=== PATIENT | female | born 1945 | race Caucasian/White ===

== ENCOUNTER → 2020-05-29 | Outpatient (CLI) | payer MEDICARE, OTHER ==
[~2020-05-29] VITALS: Ht 160 cm; Wt 65.0 kg
[~2020-05-29] MED LIST: CATHETER FLUSH 10 ML SYR IV PRN; REGADENOSON 0.4 MG/5 ML SYR (LEXISCAN) IV ONE
[2020-05-29 09:14] VITALS: BP 159/105
--- NOTE | 2020-05-29 16:00 | Cardiology Stress Test Report ---
Stress Test Report Date of Procedure/Referring: Date of Procedure: May 29, 2020 PCP Kina Avelar MD Admitting Physician Jordan Wasserman MD Indications: Hypertension Baseline Heart Rate: 92 Baseline Blood Pressure: Blood Pressure Systolic: 159 Blood Pressure Diastolic: 105 Baseline Vitals Vital Signs Date Time Temp Pulse Resp B/P (MAP) Pulse Ox O2 Delivery O2 Flow Rate FiO2 05/29/20 09:14 80 18 159/105 (123) 97 Room Air Baseline EKG: Baseline EKG: atrial fibrillation Summary After explaining the procedure to the patient, she signed a consent and then brought to the stress nuclear laboratory. Patient received 0.4 mg Lexiscan for stress test, ECG, heart rate and blood pressure were monitored continuously. Resting and stress dose of radio tracer were injected, imaging was acquired and reviewed in short axis, horizontal long axis and vertical long axis views. TID: 1.11 SSS: 6 SDS: 5 EF: 54 1. Patient tolerated Lexiscan well 2. No significant ischemia was noted on SPECT images, stress score is mildly elevated due to extracardiac attenuation and mild decrease uptake at the basal to mid anterior septum 3. Normal left ventricular size, EF 54 percent, gated images unreliable due to underlying atrial fibrillation 4. Baseline atrial fibrillation persisted during test KINA AVELAR MD May 29, 2020 16:00
== END ==
LOC: CARD 08:00
PROVIDERS: ATTEND Internal Medicine Cardiovascular Disease
DX: I10 Essential (primary) hypertension (principal); I48.91 Unspecified atrial fibrillation; E03.9 Hypothyroidism, unspecified
CPT/HCPCS: 78452; 93017; A9502

== ENCOUNTER → 2020-06-03 | Outpatient (CLI) | payer MEDICARE, OTHER ==
[~2020-06-03] MED LIST changes: +ASPI-1238 PO; -CATHETER FLUSH 10 ML SYR IV PRN; +CRAN400C PO; +L.AC1CAP6 PO; +LEVO88TA54 PO; +LOSA25TA41 PO; +METO-333 PO; +MULT-1029 PO; +OMEP20TA33 PO; -REGADENOSON 0.4 MG/5 ML SYR (LEXISCAN) IV ONE; +RIVA20TA PO
== END ==
LOC: LABNPT 05:50
PROVIDERS: ATTEND Internal Medicine Cardiovascular Disease
DX: Z01.812 Encounter for preprocedural laboratory examination (principal); Z53.9 Procedure and treatment not carried out, unspecified reason

== ENCOUNTER → 2020-06-05 | Day surgery (SDC) | payer MEDICARE, OTHER ==
[2020-06-05] VITALS (9 sets, daily range): BP systolic 105–137; BP diastolic 61–87
[~2020-06-05] VITALS: Ht 160 cm; Wt 65.0 kg
[~2020-06-05] MED LIST changes: +LIDOCAINE 2% VISCOUS 15 ML UDC ONE; +NS IV 1000 ML 1,000 ML IV SCH; +NS IV 1000 ML 1,000 ML ONE; +proPOfol 200 MG/20 ML (DIPRIVAN) VIAL IV ONE
[2020-06-05 10:50] LABS: HEMOGLOBIN 12.1 g/dL (11.5-16.0); MEAN PLATELET VOLUME 11.8 fL (9.0-12.2); WHITE BLOOD COUNT 4.4 10^3/uL (4.3-11.0)
[2020-06-05 11:10] LABS: ALBUMIN 4.1 GM/DL (3.2-4.5); BILIRUBIN,TOTAL 0.5 MG/DL (0.1-1.0); CALCIUM 8.9 MG/DL (8.5-10.1); CREATININE SERUM 0.94 MG/DL (0.60-1.30); POTASSIUM 4.2 MMOL/L (3.6-5.0)
[2020-06-05 11:13] LABS: INR 1.8 (0.8-1.4)
--- NOTE | 2020-06-05 11:26 | NUR ---
I SPOKE WITH THE PATIENT, WENT THROUGH THE MED BOTTLES BROUGHT FROM HOME, CALLED [facility] AND [facility] TO COMPLETE THIS MED REC. 11/27/2019 LEVOTHYROXINE 88MCG #90/90DS -PT IS WAITING ON A REFILL FROM [facility] 04/15/2020 LOSARTAN 100MG #90/90DS 04/30/2020 XARELTO 20MG #90/90DS 05/16/2020 METOPROLOL TART 25MG #180 OTC: ASPIRIN PROBIOTIC CRANBERRY PRILOSEC CENTR
--- NOTE | 2020-06-05 12:02 | Cardiac Procedure Note-CS/ASA ---
Pre-Procedure Note Pre-Op Procedure Note H&P Reviewed The H&P was reviewed, patient examined and no changes noted. Date H&P Reviewed: Jun 05, 2020 Time H&P Reviewed: 12:01 Conscious Sedation Pre-Proced Time 12:01 ASA Score 3 For ASA 3 and 4: Consider anesthesia and medical clearance. Also, for patients with a history of failed moderate sedation consider anesthesia. Airway Lungs Heart ASA score ASA 1: a normal healthy patient ASA 2: a patient with a mild systemic disease (mid diabetes, controlled hypertension, obesity x ASA 3: a patient with a severe systemic disease that limits activity (angina, COPD, prior Myocardial infarction) ASA 4: a patient with an incapacitating disease that is a constant threat to life (CHF, renal failure) ASA 5: a moribund patient not expected to survive 24 hrs. (ruptured aneurysm) ASA 6: a declared brain- patient whose organs are being harvested. For emergent operations, add the letter E after the classification Mallampati Classification Grade 3 Sedation Plan Analgesia, Amnesia, Plan communicated to team members, Discussed options with patient/fam, Discussed risks with patient/fam The patient is an appropriate candidate to undergo the planned procedure, sedation, and anesthesia. The patient immediately re-assessed prior to indication. KINA VELARDE MD Jun 05, 2020 12:02
--- NOTE | 2020-06-05 12:04 | Discharge Inst-Post CATH ---
Discharge Inst-CATH/EP Problems Reviewed?: Yes Post Cardiac Cath/EP D/C Inst Follow Up/Plan Appointment with Dr. Avelar's office in 2 weeks <b>CARDIAC CATH/EP PROCEDURE DISCHARGE INSTRUCTIONS</b> ACTIVITY * Go Home directly and rest. * Limit activity of the leg (or wrist if it was used) for 7 days including aerobics, swimming, jogging, bicycling, etc. * Restrict stair-climbing for 7 days if possible, if not, climb up with your non-cath leg, then bring together on the same step. * Avoid lifting, pushing, pulling or excessive movement of the affected extremity for 7 days. * Customary sexual activity may be resumed after 2 days-use caution not to use a position that strains or causes pain to the affected extremity. * No driving for 24 hours. * NO SMOKING. * Avoid straining for bowel movements for 7 days. * Gentle walking on level ground is allowed. * Returning to work will depend on the type of procedure and the results. Your doctor will discuss this with you. CALL YOUR DOCTOR FOR ANY OF THE FOLLOWING: *If bleeding from the puncture site occurs- Apply gentle pressure to site with clean cloth and call your doctor or EMS. * If a knot or lump forms under the skin, increases in size, or causes pain. * If bruising appears to be worsening or moving further down your leg instead of disappearing. * Temperature above 101 F. CARE OF YOUR GROIN INCISION; * Bruising or purple discoloration of the skin near the puncture site is common. * You may shower only, no bathtub bathing for 5 days. Be careful to avoid slipping as your leg may feel stiff. * If a closure device was used on your femoral artery, please see the attached guide regarding care of the device and your leg. * Leave dressing on FOR 24 hours. CARE OF YOUR WRIST INCISION; * Bruising or purple discoloration of the skin near the puncture site is common. * You may shower. * DO NOT submerge wrist. * Leave dressing on FOR 24 hours. KINA AVELAR MD Jun 05, 2020 12:04
--- NOTE | 2020-06-05 12:05 | Cardioversion ---
Cardioversion PROCEDURE PHYSICIAN: Kina Avelar DATE OF PROCEDURE: 06/05/20 DIRECT EXTERNAL ELECTRICAL CARDIOVERSION: Indications: Atrial Fibrillation with rapid ventricular rate Preoperative diagnoses: Atrial Fibrillation with rapid ventricular rate Postoperative diagnosis: Sinus rhythm, Successful Electrical Cardioversion Anesthesia: By Anesthesia services Complications: None Specimen: None Contrast: 0 Flouroscopy: none Procedure Details: The patient was brought the cardiac cath lab technologist after informed consent was taken, all the risks and complications were explained including the risk of stroke. Electrical cardioversion was carried out with anesthesia support with propofol. 120 joules of synchronized shock was delivered through external patches which promptly restored sinus rhythm. The patient tolerated the procedure well. Conclusions: 1. Successful electrical cardioversion without complication Final Diagnosis: Paroxysmal atrial fibrillation Palpitation Hypertension Hyperlipidemia KINA AVELAR MD Jun 05, 2020 12:05
--- NOTE | 2020-06-05 12:12 | Diagnostic Imaging Report ---
CHEST 1 VIEW, AP/PA ONLY Indication: Atrial fibrillation Comparison: None available. Findings: No focal airspace disease in the visualized lungs. Please note that the posterior lower lobes are poorly evaluated by portable radiography. No pleural effusion or pneumothorax. Normal cardiomediastinal silhouette. Impression: 1. No acute cardiopulmonary process by portable radiography. Dictated by: Dictated on workstation # [id number]
--- NOTE | 2020-06-05 12:36 | Diagnostic Imaging Report ---
INDICATION: Transesophageal echocardiogram. EXAMINATION: AP view of chest is obtained with comparison made to study of 06/05/2020. FINDINGS: Heart size and pulmonary vascularity are within normal limits. There is deformity of the lateral left ribs which may be due to old trauma. No pneumothorax is identified. There is no significant pleural fluid. There is no evidence of pneumopericardium or pneumomediastinum. IMPRESSION: No acute abnormality is detected. Dictated by: Dictated on workstation # [id number]
--- NOTE | 2020-06-05 12:54 | Anesthesia-General Post-Op ---
MAC Patient Condition Mental Status/LOC: Same as Preop Cardiovascular: Satisfactory Nausea/Vomiting: Absent Respiratory: Satisfactory Pain: Controlled Complications: Absent Post Op Complications Complications None Follow Up Care/Instructions Patient Instructions None needed. Anesthesiology Discharge Order Discharge Order Patient is doing well, no complaints, stable vital signs, no apparent adverse anesthesia problems. No complications reported per nursing. MAGDALENO MARTINEZ CRNA Jun 05, 2020 12:54
--- NOTE | 2020-06-05 13:22 | NUR ---
gag reflex intact. pt tolerating ice water and crackers.
--- NOTE | 2020-06-05 14:00 | NUR ---
dc'iv, cath intact, drsg applied. pt discharged per wheelchair to vehicle accompanied by her .
== END ==
LOC: SDC 08:21
PROVIDERS: ATTEND Internal Medicine Cardiovascular Disease
DX: I48.0 Paroxysmal atrial fibrillation (principal); I10 Essential (primary) hypertension; E78.5 Hyperlipidemia, unspecified; E03.9 Hypothyroidism, unspecified; G62.9 Polyneuropathy, unspecified; Z79.899 Other long term (current) drug therapy; Z79.82 Long term (current) use of aspirin; Z88.0 Allergy status to penicillin; Z88.2 Allergy status to sulfonamides; Z90.710 Acquired absence of both cervix and uterus; Z83.3 Family history of diabetes mellitus
CPT/HCPCS: 36415; 71045; 80053; 80061; 85027; 85610; 85730; 87081; 92960; 93005; 93312

== ENCOUNTER 2021-01-08 10:56 | Emergency (ER) | payer MEDICARE, OTHER ==
[~2021-01-08] VITALS: Ht 162.6 cm; Wt 63.5 kg
[~2021-01-08 10:56] MED LIST changes: -LIDOCAINE 2% VISCOUS 15 ML UDC ONE; -NS IV 1000 ML 1,000 ML IV SCH; -NS IV 1000 ML 1,000 ML ONE; -proPOfol 200 MG/20 ML (DIPRIVAN) VIAL IV ONE
--- NOTE | 2021-01-08 11:26 | ED Cardiac General ---
History of Present Illness General Stated Complaint: CHEST PAIN History of Present Illness Date Seen by Provider: Jan 08, 2021 Time Seen by Provider: 11:15 Initial Comments 75-year-old female with past medical history significant for atrial fibrillation. She was cardioverted several months ago by her marketing program manager in [place]. Since then she has been doing well, her last few days she has noticed an occasional irregular beat and today she was feeling it again with some pressure in her lower chest without radiation or associated nausea or diaphoresis. On arrival to the ER she is feeling better. Denies any recent illness, cough, fever or chills. Allergies and Home Medications Allergies Coded Allergies: Penicillins (Unverified Allergy, Unknown, 05/29/20) Sulfa (Sulfonamide Antibiotics) (Unverified Allergy, Unknown, 05/29/20) Home Medications Aspirin 81 Mg Tablet.dr, 81 MG PO HS, (Reported) Cranberry 400 Mg Capsule, 400 MG PO DAILY, (Reported) L.acidoph & Paracasei,B.lactis 1 Each Capsule, 1 EACH PO DAILY, (Reported) Levothyroxine Sodium 88 Mcg Tablet, 88 MCG PO HS, (Reported) LAST FILLED 11/27/2019 #90 Losartan Potassium 25 Mg Tablet, 25 MG PO DAILY, (Reported) Metoprolol Tartrate 25 Mg Tablet, 50 MG PO BID, (Reported) TAKES 2 (25MG) TABLETS Multivit-Min/FA/Lycopene/Lut 1 Each Tablet, 1 EACH PO DAILY, (Reported) Omeprazole Magnesium 20 Mg Tablet.dr, 20 MG PO DAILY PRN for HEARTBURN, (Reported) Rivaroxaban 20 Mg Tablet, 20 MG PO HS, (Reported) Patient Home Medication List Home Medication List Reviewed: Yes Review of Systems Review of Systems Constitutional: No dizziness, No fever, No malaise, No weakness EENTM: No Symptoms Reported Respiratory: Denies Cough, Denies Shortness of Air Cardiovascular: See HPI; Denies Chest Pain, Denies Edema; Irregular Heart Rate, Lightheadedness, Palpitations; Denies Syncope Gastrointestinal: Denies Abdominal Pain, Denies Diarrhea, Denies Nausea, Denies Poor Appetite, Denies Vomiting Musculoskeletal: No back pain, No joint pain Past Sfrhyxf-Gpwjkb-Oofdcq Hx Past Med/Social Hx: Reviewed Nursing Past Med/Soc Hx Patient Social History Alcohol Beverage of Choice: Wine Immunizations Up To Date Tetanus Booster (TDap): Less than 5yrs Date of Pneumonia Vaccine: Mar 27, 2015 Past Medical History Thyroidectomy Respiratory: No Cardiac: Yes Hypertension Neurological: No Genitourinary: No Gastrointestinal: Yes Diverticulosis Cancer: Yes Skin Physical Exam Vital Signs Vital Signs - First Documented 01/08/21 11:00 Temp 36.1 Pulse 94 Resp 14 B/P (MAP) 123/79 (94) Pulse Ox 97 O2 Delivery Room Air Capillary Refill : Height, Weight, BMI Height: '" Weight: lbs. oz. kg; 25.39 BMI Method: General Appearance: No Apparent Distress, WD/WN HEENT: PERRL/EOMI, Normal ENT Inspection Neck: Full Range of Motion, Non Tender, Supple Respiratory: Chest Non Tender, Lungs Clear, Normal Breath Sounds, No Accessory Muscle Use, No Respiratory Distress Cardiovascular: No Edema, No JVD, Normal Peripheral Pulses, Irregularly Irregular Gastrointestinal: Normal Bowel Sounds, Non Tender, Soft Extremity: Normal Capillary Refill, Normal Inspection, Non Tender Neurologic/Psychiatric: Alert, Oriented x3 Skin: Normal Color, Warm/Dry Progress/Results/Core Measures Results/Orders Lab Results Laboratory Tests Test 01/08/21 11:10 Range/Units White Blood Count 3.7 L 4.3-11.0 10^3/uL Red Blood Count 4.18 L 4.35-5.85 10^6/uL Hemoglobin 12.4 11.5-16.0 G/DL Hematocrit 39 35-52 % Mean Corpuscular Volume 93 80-99 FL Mean Corpuscular Hemoglobin 30 25-34 PG Mean Corpuscular Hemoglobin Concent 32 32-36 G/DL Red Cell Distribution Width 12.8 10.0-14.5 % Platelet Count 162 130-400 10^3/uL Mean Platelet Volume 11.6 H 7.4-10.4 FL Immature Granulocyte % (Auto) 1 % Neutrophils (%) (Auto) 57 42-75 % Lymphocytes (%) (Auto) 31 12-44 % Monocytes (%) (Auto) 10 0-12 % Eosinophils (%) (Auto) 1 0-10 % Basophils (%) (Auto) 0 0-10 % Neutrophils # (Auto) 2.1 1.8-7.8 X 10^3 Lymphocytes # (Auto) 1.1 1.0-4.0 X 10^3 Monocytes # (Auto) 0.4 0.0-1.0 X 10^3 Eosinophils # (Auto) 0.1 0.0-0.3 10^3/uL Basophils # (Auto) 0.0 0.0-0.1 10^3/uL Immature Granulocyte # (Auto) 0.0 0.0-0.1 10^3/uL Sodium Level 140 135-145 MMOL/L Potassium Level 4.2 3.6-5.0 MMOL/L Chloride Level 106 98-107 MMOL/L Carbon Dioxide Level 26 21-32 MMOL/L Anion Gap 8 5-14 MMOL/L Blood Urea Nitrogen 17 7-18 MG/DL Creatinine 1.00 0.60-1.30 MG/DL Estimat Glomerular Filtration Rate 54 BUN/Creatinine Ratio 17 Glucose Level 79 70-105 MG/DL Calcium Level 9.1 8.5-10.1 MG/DL Corrected Calcium 8.9 8.5-10.1 MG/DL Magnesium Level 1.9 1.6-2.4 MG/DL Total Bilirubin 0.7 0.1-1.0 MG/DL Aspartate Amino Transf (AST/SGOT) 20 5-34 U/L Alanine Aminotransferase (ALT/SGPT) 12 0-55 U/L Alkaline Phosphatase 93 40-136 U/L Troponin I < 0.30 <0.30 NG/ML Total Protein 7.4 6.4-8.2 GM/DL Albumin 4.2 3.2-4.5 GM/DL My Orders Orders - ROVENSTINEKINJAL L DO Ed Iv/Invasive Line Start (01/08/21 11:21) Cbc With Automated Diff (01/08/21 11:21) Comprehensive Metabolic Panel (01/08/21 11:21) Magnesium (01/08/21 11:21) Troponin I Fs (01/08/21 11:21) Ekg Tracing (01/08/21 11:21) Chest 1 View Ap/Pa Only (01/08/21 11:21) Ns Iv 1000 Ml (Sodium Chloride 0.9%) (01/08/21 11:30) Metoprolol Succinate (Xl) Tab (Toprol Xl (01/08/21 11:30) Medications Given in ED Current Medications Medications Dose Ordered Sig/Princess Route Start Time Stop Time Status Last Admin Dose Admin Metoprolol Succinate 25 mg ONCE ONCE PO 01/08/21 11:30 01/08/21 11:31 DC 01/08/21 11:28 25 MG Vital Signs/I&O 01/08/21 11:00 Temp 36.1 Pulse 94 Resp 14 B/P (MAP) 123/79 (94) Pulse Ox 97 O2 Delivery Room Air Progress Progress Note : Progress Note Patient asymptomatic for ER visit with no rapid heart rate. Reviewed normal labs and EKG showing A. fib. Call Dr. Avelar her marketing program manager, who agrees with increasing her metoprolol to 50 mg twice daily from 25. He will see her in the office next week. She is currently anticoagulated on Xarelto. This information was conveyed to patient and her . They agree with treatment and plan and have no further questions. Initial ECG Impression Date: Jan 08, 2021 Initial ECG Rhythm: A Fib/Flutter Initial ECG Impression: Atrial Fibrillation Departure Impression Primary Impression: Atrial fib/flutter, transient Disposition: 01 HOME, SELF-CARE Condition: Improved Departure-Patient Inst. Decision time for Depature: 11:54 Referrals: MINA LIM MD (PCP/Family) Primary Care Physician Patient Instructions: Atrial Fibrillation (DC) Add. Discharge Instructions: Increase your Metoprolol to 50mg twice daily and keep your appointment to see Dr Avelar next week. Go to the nearest ER for issues with a rapid heart rate that doesn't slow down in a few minutes. KINJAL ANGEL DO Jan 08, 2021 11:25
[2021-01-08] MEDS ORDERED: NS IV 1000 ML 1,000 ML IV SCH (11:30)
[2021-01-08 11:35] LABS: BASOPHILS % (AUTO) 0 % (0-10); EOSINOPHILS % (AUTO) 1 % (0-10); HEMATOCRIT 39 % (35-52); HEMOGLOBIN 12.4 G/DL (11.5-16.0); LYMPHOCYTES % (AUTO) 31 % (12-44); MEAN CORPUSCULAR HEMOGLOBIN 30 PG (25-34); MEAN CORPUSCULAR HGB CONC 32 G/DL (32-36); MEAN CORPUSCULAR VOLUME 93 FL (80-99); MEAN PLATELET VOLUME 11.6 FL (7.4-10.4); MONOCYTES % (AUTO) 10 % (0-12); NEUTROPHILS % (AUTO) 57 % (42-75); PLATELET COUNT 162 10^3/uL (130-400); WHITE BLOOD COUNT 3.7 10^3/uL (4.3-11.0)
[2021-01-08 11:36] LABS: EOSINOPHILS # (AUTO) 0.1 10^3/uL (0.0-0.3); LYMPHOCYTES # (AUTO) 1.1 X 10^3 (1.0-4.0); MONOCYTES # (AUTO) 0.4 X 10^3 (0.0-1.0); NEUTROPHILS # (AUTO) 2.1 X 10^3 (1.8-7.8)
[2021-01-08 11:46] LABS: ALANINE AMINOTRANSFERASE 12 U/L (0-55); ALKALINE PHOSPHATASE 93 U/L (40-136); BILIRUBIN,TOTAL 0.7 MG/DL (0.1-1.0); BUN/CREATININE RATIO 17; CALCIUM 9.1 MG/DL (8.5-10.1); CARBON DIOXIDE 26 MMOL/L (21-32); CHLORIDE 106 MMOL/L (98-107); GFR ESTIMATED 54; GLUCOSE 79 MG/DL (70-105); MAGNESIUM 1.9 MG/DL (1.6-2.4); POTASSIUM 4.2 MMOL/L (3.6-5.0); SODIUM 140 MMOL/L (135-145)
[2021-01-08 11:47] LABS: ALBUMIN 4.2 GM/DL (3.2-4.5); TOTAL PROTEIN 7.4 GM/DL (6.4-8.2)
[2021-01-08 12:28] VITALS: BP 126/57
--- NOTE | 2021-01-08 12:42 | Diagnostic Imaging Report ---
HISTORY: Chest pain COMPARISON: 06/05/2020 TECHNIQUE: Frontal view of the chest FINDINGS: Lung volumes are mildly large. No focal consolidation is seen. There is no pleural effusion or pneumothorax. The cardiac silhouette is normal in size. There is chronic appearing deformity of the left chest wall. There appears to be a fracture of the lateral left 4th rib which appears chronic. IMPRESSION: 1. No acute pulmonary abnormality is seen. 2. Chronic appearing deformity of the left chest wall. Fracture of the left 4th rib appears chronic. Dictated by: Dictated on workstation # [id number]
== END 2021-01-08 12:13 | disposition home or self-care (01) ==
LOC: EDUNIT# 10:56 → ER FS 10:59
DX: I48.91 Unspecified atrial fibrillation (principal); I10 Essential (primary) hypertension; Z79.01 Long term (current) use of anticoagulants; Z79.82 Long term (current) use of aspirin
CPT/HCPCS: 36415; 71045; 80053; 83735; 84484; 85025; 93005

== ENCOUNTER 2021-01-17 07:39 | Day surgery (SDC) | payer MEDICARE, OTHER ==
[~2021-01-17] VITALS: Ht 162.6 cm; Wt 64.2 kg
[2021-01-17] VITALS (11 sets, daily range): BP systolic 108–169; BP diastolic 67–81
[2021-01-17] MEDS ORDERED: NS IV 1000 ML 1,000 ML IV SCH (08:00)
[2021-01-17 08:14] LABS: HEMATOCRIT 40 % (35-52); HEMOGLOBIN 12.6 g/dL (11.5-16.0); MEAN CORPUSCULAR HEMOGLOBIN 30 pg (25-34); MEAN CORPUSCULAR HGB CONC 31 g/dL (32-36); MEAN CORPUSCULAR VOLUME 95 fL (80-99); MEAN PLATELET VOLUME 11.2 fL (9.0-12.2); PLATELET COUNT 156 10^3/uL (130-400); WHITE BLOOD COUNT 4.1 10^3/uL (4.3-11.0)
[2021-01-17 08:25] LABS: INR 1.9 (0.8-1.4)
[2021-01-17 08:34] LABS: ALBUMIN 4.1 GM/DL (3.2-4.5); BILIRUBIN,TOTAL 0.5 MG/DL (0.1-1.0); CALCIUM 9.2 MG/DL (8.5-10.1); CREATININE SERUM 1.02 MG/DL (0.60-1.30); POTASSIUM 4.1 MMOL/L (3.6-5.0); TOTAL PROTEIN 7.2 GM/DL (6.4-8.2)
[2021-01-17] MEDS ORDERED: METO50TA15 PO (08:52)
[2021-01-17] MEDS ORDERED: IRBE300T17 PO (08:52)
[2021-01-17] MEDS ORDERED: ACET-2267 PO (08:54)
[2021-01-17] MEDS ORDERED: HEParin 1000 UNIT/ML (10ML VIAL) FOR BOLUS ONE (09:40)
--- NOTE | 2021-01-17 10:10 | Cardiac Cath Report ---
Cardiac Cath Report Physician (s)/Fell Cutter (s) Physician KINA VELARDE MD Pre-Procedure Diagnosis Pre-Procedure Diagnosis: Coronary artery disease Post-Procedure Note Procedure Start Date: Jan 17, 2021 Name of Procedure: Left heart catheterization Stent to the LAD Findings/Procedure Note PROCEDURE NOTE: 75-year-old lady with a history of hypertension, paroxysmal atrial fibrillation, chest pain, had an abnormal stress test, scheduled for cardiac catheterization possible PTCA. After explaining the procedure to the patient, all pros and cons were explained, all questions were answered. The patient signed the consent and then she was placed on the cardiac catheterization laboratory. Groin was prepped SL fashion local anesthesia was used. Sheath placed in the right radial artery, [place] catheter was advanced to the left ventricular cavity, pressure was measured, pullback LV to aorta was done, intubated the right and left coronary system and angiogram was done. Patient was noted to have severe mid LAD stenosis, given additional 3000 units of heparin, I attempted with a EBU guide to access the left coronary system without success, exchanged it and use FL 3.5, BMW wire was advanced through the LAD that has severe mid stenosis, primary stenting using 2.25 x 23 mm Indu stent expanded to 2.45 mm with excellent results At the end of the procedure the sheath was removed. Vascular band deployed FINDINGS: Hemodynamics LV 104/9, end-diastolic pressure of 9 Aorta 118/57 mean of 17 ANATOMY: Left Main is free of obstructive disease Left Anterior Descending is small to moderate in size with severe mid LAD stenosis, successful primary stenting using Indu 2.25 x 23 mm expanded to 2.45 mm with excellent results Left Circumflex has mild disease nonobstructive disease Right Coronary Artery has mild to moderate disease in the midportion nonobstructive disease LV Gram was not done, pressure was measured CONCLUSION: 1. Severe mid LAD stenosis with successful primary stenting using Indu 2.25 x 23 mm expanded to 2.45 mm with excellent results 2. Otherwise mild coronary artery disease nonobstructive disease 3. Normal left ventricular end-diastolic pressure DISCUSSION AND RECOMMENDATION: Patient was started on aspirin, Plavix in addition to the Xarelto. We will continue maximizing medical therapy Anesthesia Type: Conscious Sedation Estimated blood loss (mL): 15 ml Contrast Amount: 100 ml Total Radiation Dose: 332 mGy Post-Procedure Diagnosis Post-operative diagnosis: Chest pain Coronary artery disease Paroxysmal atrial fibrillation Hypertension KINA VELARDE MD Jan 17, 2021 10:10 am
--- NOTE | 2021-01-17 10:10 | Conscious Sedation/ASA ---
Conscious Sedation Pre-Proced Time 10:10 ASA Score 3 For ASA 3 and 4: Consider anesthesia and medical clearance. Also, for patients with a history of failed moderate sedation consider anesthesia. Airway Lungs Heart ASA score ASA 1: a normal healthy patient ASA 2: a patient with a mild systemic disease (mid diabetes, controlled hypertension, obesity x ASA 3: a patient with a severe systemic disease that limits activity (angina, COPD, prior Myocardial infarction) ASA 4: a patient with an incapacitating disease that is a constant threat to life (CHF, renal failure) ASA 5: a moribund patient not expected to survive 24 hrs. (ruptured aneurysm) ASA 6: a declared brain- patient whose organs are being harvested. For emergent operations, add the letter E after the classification Mallampati Classification Grade 3 Sedation Plan Analgesia, Amnesia, Plan communicated to team members, Discussed options with patient/fam, Discussed risks with patient/fam The patient is an appropriate candidate to undergo the planned procedure, sedation, and anesthesia. The patient immediately re-assessed prior to indication. KINA VELARDE MD Jan 17, 2021 10:10 am
[2021-01-17] MEDS: NS IV 1000 ML 1,000 ML IV SCH ×2 (13:01→21:09)
[2021-01-17] MEDS ORDERED: ACETAMINOPHEN 325 MG TABLET PO PRN (17:45)
[2021-01-17] MEDS ORDERED: IBUPROFEN 600 MG (MOTRIN) TAB PO PRN (17:45)
[2021-01-17] MEDS: meTOprolol TARTRATE 50 MG (LOPRESSOR) TAB PO SCH (18:31)
[2021-01-18] VITALS: BP 144/72
[2021-01-18 04:00] VITALS: BP 125/68
[2021-01-18 04:35] LABS: HEMOGLOBIN 10.6 g/dL (11.5-16.0); MEAN PLATELET VOLUME 11.6 fL (9.0-12.2); WHITE BLOOD COUNT 3.2 10^3/uL (4.3-11.0)
[2021-01-18 04:48] LABS: ALBUMIN 3.4 GM/DL (3.2-4.5); POTASSIUM 4.4 MMOL/L (3.6-5.0)
[2021-01-18 04:49] LABS: CALCIUM 8.3 MG/DL (8.5-10.1)
[2021-01-18 04:52] LABS: BILIRUBIN,TOTAL 0.4 MG/DL (0.1-1.0)
[2021-01-18 04:54] LABS: CREATININE SERUM 0.92 MG/DL (0.60-1.30)
[2021-01-18] MEDS: NS IV 1000 ML 1,000 ML IV SCH (05:35)
[2021-01-18] MEDS ORDERED: LEVOTHYROXINE 88 MCG (LEVOTHORID) TAB PO SCH (06:30)
[2021-01-18 08:00] VITALS: BP 158/99
[2021-01-18] MEDS ORDERED: DRON400T6 PO (08:15)
[2021-01-18] MEDS ORDERED: PANT40TA52 PO (08:15)
[2021-01-18] MEDS ORDERED: CLOP75TA28 PO (08:15)
[2021-01-18] MEDS ORDERED: ASPI-1238 PO (08:15)
--- NOTE | 2021-01-18 08:15 | Discharge Inst-Post CATH ---
Discharge Inst-CATH/EP Problems Reviewed?: Yes Post Cardiac Cath/EP D/C Inst Follow Up/Plan Appointment with Dr Avelar in 2 weeks <b>CARDIAC CATH/EP PROCEDURE DISCHARGE INSTRUCTIONS</b> ACTIVITY * Go Home directly and rest. * Limit activity of the leg (or wrist if it was used) for 7 days including aerobics, swimming, jogging, bicycling, etc. * Restrict stair-climbing for 7 days if possible, if not, climb up with your non-cath leg, then bring together on the same step. * Avoid lifting, pushing, pulling or excessive movement of the affected extremity for 7 days. * Customary sexual activity may be resumed after 2 days-use caution not to use a position that strains or causes pain to the affected extremity. * No driving for 24 hours. * NO SMOKING. * Avoid straining for bowel movements for 7 days. * Gentle walking on level ground is allowed. * Returning to work will depend on the type of procedure and the results. Your doctor will discuss this with you. CALL YOUR DOCTOR FOR ANY OF THE FOLLOWING: *If bleeding from the puncture site occurs- Apply gentle pressure to site with clean cloth and call your doctor or EMS. * If a knot or lump forms under the skin, increases in size, or causes pain. * If bruising appears to be worsening or moving further down your leg instead of disappearing. * Temperature above 101 F. CARE OF YOUR GROIN INCISION; * Bruising or purple discoloration of the skin near the puncture site is common. * You may shower only, no bathtub bathing for 5 days. Be careful to avoid slipping as your leg may feel stiff. * If a closure device was used on your femoral artery, please see the attached guide regarding care of the device and your leg. * Leave dressing on FOR 24 hours. CARE OF YOUR WRIST INCISION; * Bruising or purple discoloration of the skin near the puncture site is common. * You may shower. * DO NOT submerge wrist. * Leave dressing on FOR 24 hours. KINA AVELAR MD Jan 18, 2021 08:15
[2021-01-18] MEDS ORDERED: CLOPIDOGREL 75 MG (PLAVIX) TABLET PO SCH (09:00)
[2021-01-18] MEDS ORDERED: VALSARTAN 160 MG (DIOVAN) TABLET PO SCH (09:00)
[2021-01-18] MEDS ORDERED: NON-FORMULARY MEDICATION 1 EA EA (Irbesartan 300 MG) PO SCH (09:00)
[2021-01-18] MEDS ORDERED: ASPIRIN E.C. 81 MG (ECOTRIN) TAB PO SCH (09:00)
[2021-01-18] MEDS ORDERED: PANTOPRAZOLE 40 MG (PROTONIX) TAB PO SCH (09:00)
[2021-01-18] MEDS: meTOprolol TARTRATE 50 MG (LOPRESSOR) TAB PO SCH (09:02)
[2021-01-18] MEDS ORDERED: ATOR10TA PO (10:35)
--- NOTE | 2021-01-18 10:37 | Cardiology Progress Note ---
Subjective Date Seen by Provider: Jan 18, 2021 Time Seen by Provider: 10:35 Subjective/Events-last exam Patient was seen at bedside, laying down comfortably, no chest pain was reported Review of Systems General: No Chills, No Night Sweats, No Fatigue, No Malaise, No Appetite, No Other HEENT: No Head Aches, No Visual Changes, No Eye Pain, No Ear Pain, No Dysphasia, No Sinus Congestion, No Post Nasal Drip, No Sore Throat, No Other Pulmonary: No Dyspnea, No Cough, No Pleuritic Chest Pain, No Other Cardiovascular: No: Chest Pain, Palpitations, Orthopnea, Paroxysmal Noc. Dyspnea, Edema, Lt Headedness, Other Objective-Cardiology Exam Last Set of Vital Signs Vital Signs 01/18/21 01/18/21 08:00 09:35 Temp 36.7 Pulse 71 Resp 18 B/P (MAP) 158/99 (118) Pulse Ox 96 O2 Delivery Room Air I&O Intake and Output 01/18/21 00:00 Intake Total 700 ml Balance 700 ml Intake Oral 700 ml # Voids 4 General: Alert, Oriented X3, Cooperative HEENT: Atraumatic, PERRLA Neck: Supple, No JVD, No Thyromegaly Lungs: Clear to Auscultation, Normal Air Movement Heart: Normal S1, Normal S2, No Murmurs, Other (Atrial fibrillation) Abdomen: Normal Bowel Sounds, Soft, No Tenderness, No Hepatosplenomegaly, No Masses Extremities: No Clubbing, No Cyanosis, No Edema, Normal Pulses, No Tenderness/Swelling Skin: No Rashes, No Breakdown, No Significant Lesion Neuro: Normal Gait, Normal Speech, Strength at 5/5 X4 Ext, Normal Tone, Sensation Intact Psych/Mental Status: Mental Status NL, Mood NL Results Lab Laboratory Tests 01/18/21 04:00 A/P-Cardiology Admission Diagnosis Coronary artery disease Paroxysmal atrial fibrillation Hypertension Hyperlipidemia Assessment/Plan Coronary artery disease status post stenting to the LAD with excellent results. Started on aspirin and Plavix in addition to the Xarelto I am planning to stop aspirin after 1 month and continue on Xarelto and Plavix. Paroxysmal atrial fibrillation, started on Multaq, continue on Xarelto. Hyperlipidemia, LDL 116, starting Lipitor Hypertension, monitor blood pressure KINA VELARDE MD Jan 18, 2021 10:37
[2021-01-18 11:00] VITALS: BP 158/99
== END 2021-01-18 12:05 | disposition home or self-care (01) ==
LOC: CATH 07:39 → CSD 07:39 → CATH 10:27 → CSD 10:27 → CATH 01-18 12:05 → CSD 01-18 12:05 → EDSTATUS 01-22 17:10
PROVIDERS: ATTEND Internal Medicine Cardiovascular Disease
DX: I25.10 Atherosclerotic heart disease of native coronary artery without angina pectoris (principal); I48.0 Paroxysmal atrial fibrillation; I10 Essential (primary) hypertension; E03.9 Hypothyroidism, unspecified; I65.23 Occlusion and stenosis of bilateral carotid arteries; Z90.710 Acquired absence of both cervix and uterus; Z79.899 Other long term (current) drug therapy; Z86.73 Personal history of transient ischemic attack (TIA), and cerebral infarction without residual deficits; Z83.3 Family history of diabetes mellitus
CPT/HCPCS: 80053 ×2; 80061; 85027 ×2; 85610; 85730; 87081; 93005; 93458; C1769; C1874; C1887; C9600; 36415

== ENCOUNTER 2021-01-20 16:59 | Emergency (ER) | payer MEDICARE, OTHER ==
[~2021-01-20] VITALS: Ht 162.6 cm; Wt 63.5 kg
[~2021-01-20 16:59] MED LIST changes: +ACET-2267 PO; +ATOR10TA PO; +CLOP75TA28 PO; +DRON400T6 PO; +IRBE300T17 PO; +METO50TA15 PO; +PANT40TA52 PO
[2021-01-20] MEDS ORDERED: ASPIRIN 81 MG CHEW (CHILDREN'S ASA) PO ONE (17:15)
--- NOTE | 2021-01-20 17:15 | ED Chest Pain ---
General Chief Complaint: Cardiac/General Problems Stated Complaint: STENT PLACED 01/17 - SOA / LOW BP 95/67 Source: patient Exam Limitations: no limitations (COLTON AUSTIN APRN) History of Present Illness Date Seen by Provider: Jan 20, 2021 Time Seen by Provider: 17:15 Initial Comments [facility] with reports of exertional dyspnea and low blood pressure with the top number being below 100 for the past 2 days at home. She has vertigo as well. No chest pain. 2 days ago she had a stent placed into the LAD by Dr. Avelar. She denies any chest pain. She has had exertional dyspnea much worse than usual x2 days but she has it all the time when she is in atrial fibrillation for which she is on Xarelto. Timing/Duration: 2-3 days Severity/Quality: moderate Location: central Radiation: no radiation Activities at Onset: none (COLTON AUSTIN APRN) Allergies and Home Medications Allergies Coded Allergies: Penicillins (Unverified Allergy, Unknown, 05/29/20) Sulfa (Sulfonamide Antibiotics) (Unverified Allergy, Unknown, 05/29/20) Home Medications Acetaminophen 500 Mg Tablet, 500-1,000 MG PO Q8H PRN for PAIN-MILD (1-4), (Reported) Aspirin 81 Mg Tablet., 81 MG PO DAILY Prescribed by: KINA AVELAR on 01/18/21 1035 Atorvastatin Calcium 10 Mg Tablet, 10 MG PO DAILY Prescribed by: KINA AVELAR on 01/18/21 1035 Clopidogrel Bisulfate 75 Mg Tablet, 75 MG PO DAILY Prescribed by: KINA AVELAR on 01/18/21 1035 Cranberry 400 Mg Capsule, 400 MG PO DAILY, (Reported) Dronedarone HCl 400 Mg Tablet, 400 MG PO BID Prescribed by: KINA AVELAR on 01/18/21 1035 Irbesartan 300 Mg Tablet, 300 MG PO DAILY, (Reported) L.acidoph & Paracasei,B.lactis 1 Each Capsule, 1 EACH PO DAILY, (Reported) Levothyroxine Sodium 88 Mcg Tablet, 88 MCG PO DAILY, (Reported) Metoprolol Tartrate 50 Mg Tablet, 50 MG PO BID WITH MEALS, (Reported) Pantoprazole Sodium 40 Mg Tablet., 40 MG PO DAILY Prescribed by: KINA AVELAR on 01/18/21 1035 Rivaroxaban 20 Mg Tablet, 20 MG PO 1800, (Reported) Patient Home Medication List Home Medication List Reviewed: Yes (COLTON AUSTIN APRN) Review of Systems Review of Systems Constitutional: see HPI EENTM: No Symptoms Reported Respiratory: See HPI, Shortness of Air, SOA With Exertion Cardiovascular: See HPI; Denies Chest Pain Gastrointestinal: No Symptoms Reported Genitourinary: No Symptoms Reported Musculoskeletal: no symptoms reported Psychiatric/Neurological: No Symptoms Reported Endocrine: No Symptoms Reported Hematologic/Lymphatic: No Symptoms Reported (COLTON AUSTIN APRN) Past Qijlypu-Phgycz-Vk[facility] Hx Immunizations Up To Date Tetanus Booster (TDap): Less than 5yrs (COLTON AUSTIN APRN) Seasonal Allergies Seasonal Allergies: No (COLTON AUSTIN APRN) Past Medical History Surgeries: Yes (hsyt,thyroid,breast reduction, bladder tuck) Appendectomy, Bladder Surgery, Hysterectomy, Thyroidectomy Respiratory: No Currently Using CPAP: No Currently Using BIPAP: No Cardiac: Yes Atrial Fibrillation, Hypertension Neurological: No Genitourinary: Yes (L KIDNEY POORLY DEVELOPED) Gastrointestinal: Yes Diverticulosis Musculoskeletal: No Endocrine: No HEENT: No Cancer: Yes Melanoma Did You Recieve Any Treatments: Yes What Type of Treatment Did You: Surgical Intervention Psychosocial: No Integumentary: No Blood Disorders: No (COLTON AUSTIN APRN) Physical Exam Vital Signs Vital Signs - First Documented 01/20/21 17:10 Temp 36.2 Pulse 67 Resp 18 B/P (MAP) 126/73 (90) Pulse Ox 99 O2 Delivery Room Air (ROSARIO MALAVE MD) Vital Signs Capillary Refill : (COLTON AUSTIN APRN) Height, Weight, BMI Height: '" Weight: lbs. oz. kg; 24.28 BMI Method: General Appearance: No Apparent Distress, WD/WN, Other (She is in no distress her heart rate is 62 her oxygen is 99 to 100% on room air her blood pressure is 135/86) HEENT: PERRL/EOMI, TMs Normal Neck: Full Range of Motion, Normal Inspection Respiratory: No Accessory Muscle Use, No Respiratory Distress Cardiovascular: Regular Rate, Rhythm, Normal Peripheral Pulses Gastrointestinal: Normal Bowel Sounds, Non Tender, Soft Neurologic/Psychiatric: Alert, Oriented x3 Skin: Normal Color, Warm/Dry (COLTON AUSTIN APRN) Progress/Results/Core Measures Results/Orders Lab Results Laboratory Tests Test 01/20/21 17:42 01/20/21 19:54 Range/Units White Blood Count 4.7 4.3-11.0 10^3/uL Red Blood Count 3.97 3.80-5.11 10^6/uL Hemoglobin 11.8 11.5-16.0 g/dL Hematocrit 37 35-52 % Mean Corpuscular Volume 94 80-99 fL Mean Corpuscular Hemoglobin 30 25-34 pg Mean Corpuscular Hemoglobin Concent 32 32-36 g/dL Red Cell Distribution Width 12.8 10.0-14.5 % Platelet Count 178 130-400 10^3/uL Mean Platelet Volume 11.9 9.0-12.2 fL Immature Granulocyte % (Auto) 1 % Neutrophils (%) (Auto) 56 42-75 % Lymphocytes (%) (Auto) 29 12-44 % Monocytes (%) (Auto) 13 H 0-12 % Eosinophils (%) (Auto) 2 0-10 % Basophils (%) (Auto) 0 0-10 % Neutrophils # (Auto) 2.6 1.8-7.8 10^3/uL Lymphocytes # (Auto) 1.4 1.0-4.0 10^3/uL Monocytes # (Auto) 0.6 0.0-1.0 10^3/uL Eosinophils # (Auto) 0.1 0.0-0.3 10^3/uL Basophils # (Auto) 0.0 0.0-0.1 10^3/uL Immature Granulocyte # (Auto) 0.0 0.0-0.1 10^3/uL Prothrombin Time 14.3 12.2-14.7 SEC INR Comment 1.1 0.8-1.4 Activated Partial Thromboplast Time 34 24-35 SEC Sodium Level 139 135-145 MMOL/L Potassium Level 4.4 3.6-5.0 MMOL/L Chloride Level 104 98-107 MMOL/L Carbon Dioxide Level 23 21-32 MMOL/L Anion Gap 12 5-14 MMOL/L Blood Urea Nitrogen 20 H 7-18 MG/DL Creatinine 1.39 H 0.60-1.30 MG/DL Estimat Glomerular Filtration Rate 37 BUN/Creatinine Ratio 14 Glucose Level 94 70-105 MG/DL Calcium Level 8.9 8.5-10.1 MG/DL Corrected Calcium 8.8 8.5-10.1 MG/DL Magnesium Level 2.1 1.6-2.4 MG/DL Total Bilirubin 0.7 0.1-1.0 MG/DL Aspartate Amino Transf (AST/SGOT) 23 5-34 U/L Alanine Aminotransferase (ALT/SGPT) 18 0-55 U/L Alkaline Phosphatase 81 40-136 U/L Myoglobin 40.4 10.0-92.0 NG/ML Troponin I 0.079 H 0.067 H <0.028 NG/ML B-Type Natriuretic Peptide 341.7 H <100.0 PG/ML Total Protein 7.3 6.4-8.2 GM/DL Albumin 4.1 3.2-4.5 GM/DL Influenza Type A (RT-PCR) Not Detected Not Detecte Influenza Type B (RT-PCR) Not Detected Not Detecte SARS-CoV-2 RNA (RT-PCR) Not Detected Not Detecte (ROSARIO MALAVE MD) Vital Signs/I&O 01/20/21 01/20/21 17:10 21:37 Temp 36.2 36.2 Pulse 67 64 Resp 18 18 B/P (MAP) 126/73 (90) 116/73 (90) Pulse Ox 99 99 O2 Delivery Room Air (ROSARIO MALAVE MD) Departure Communication (Admissions) Family Conversation Her EKG shows atrial fibrillation rate of 65 1901-oxygen saturation remains 100% at this time, blood pressure 115/74 heart rate 62. I discussed with Dr. Avelar, recommends a one-time dose of Lasix 40 mg IV and a repeat troponin. As long as it is falling then she can go home and see him in the clinic. (COLTON AUSTIN APRN) Impression Primary Impression: Dyspnea on exertion Disposition: HOME, SELF-CARE Condition: Stable Departure-Patient Inst. Decision time for Depature: 21:02 (COLTON AUSTIN APRN) Referrals: SELFMINA MD (PCP/Family) Primary Care Physician Patient Instructions: Shortness of Breath (Dyspnea) Add. Discharge Instructions: 1. Call Dr. Avelar tomorrow for follow-up. Return to ER for any concerns. All discharge instructions reviewed with patient and/or family. Voiced understanding. ATTENDING PHYSICIAN NOTE: I was physically present as attending physician in the emergency department during the care of this patient, but I was not directly involved in the decision making or delivery of care for this patient. (ROSARIO MALAVE MD) Copy Copies To 1: KINA AVELAR MD, PETER J APRN Jan 20, 2021 17:15 ROSARIO MALAVE MD Jan 23, 2021 22:13
[2021-01-20 17:51] LABS: BASOPHILS % (AUTO) 0 % (0-10); EOSINOPHILS # (AUTO) 0.1 10^3/uL (0.0-0.3); EOSINOPHILS % (AUTO) 2 % (0-10); HEMATOCRIT 37 % (35-52); HEMOGLOBIN 11.8 g/dL (11.5-16.0); LYMPHOCYTES # (AUTO) 1.4 10^3/uL (1.0-4.0); LYMPHOCYTES % (AUTO) 29 % (12-44); MEAN CORPUSCULAR HEMOGLOBIN 30 pg (25-34); MEAN CORPUSCULAR HGB CONC 32 g/dL (32-36); MEAN CORPUSCULAR VOLUME 94 fL (80-99); MEAN PLATELET VOLUME 11.9 fL (9.0-12.2); MONOCYTES # (AUTO) 0.6 10^3/uL (0.0-1.0); MONOCYTES % (AUTO) 13 % (0-12); NEUTROPHILS # (AUTO) 2.6 10^3/uL (1.8-7.8); NEUTROPHILS % (AUTO) 56 % (42-75); PLATELET COUNT 178 10^3/uL (130-400); WHITE BLOOD COUNT 4.7 10^3/uL (4.3-11.0)
[2021-01-20 18:01] LABS: ALBUMIN 4.1 GM/DL (3.2-4.5); POTASSIUM 4.4 MMOL/L (3.6-5.0)
[2021-01-20 18:02] LABS: CALCIUM 8.9 MG/DL (8.5-10.1)
[2021-01-20 18:04] LABS: TOTAL PROTEIN 7.3 GM/DL (6.4-8.2)
[2021-01-20 18:06] LABS: BILIRUBIN,TOTAL 0.7 MG/DL (0.1-1.0)
[2021-01-20 18:07] LABS: CREATININE SERUM 1.39 MG/DL (0.60-1.30)
[2021-01-20 18:08] LABS: INR 1.1 (0.8-1.4); PROTHROMBIN TIME PATIENT 14.3 SEC (12.2-14.7)
[2021-01-20 18:10] LABS: MAGNESIUM 2.1 MG/DL (1.6-2.4)
--- NOTE | 2021-01-20 18:11 | Diagnostic Imaging Report ---
EXAMINATION: Chest 1 view HISTORY: Chest pain. COMPARISON: 01/08/2021. FINDINGS: The lung volumes are normal. No focal consolidation is seen. No large pleural effusion or pneumothorax is seen. The cardiomediastinal silhouette is normal in size and contour. No acute osseous abnormality is seen. Old rib fractures are again noted in the left chest. IMPRESSION: 1. No acute pleuroparenchymal process. Dictated by: Dictated on workstation # [id number]
[2021-01-20] MEDS ORDERED: FUROSEMIDE 40 MG/4 ML INJ (LASIX) IVP ONE (19:00)
[2021-01-20 21:37] VITALS: BP 116/73
== END 2021-01-20 21:38 | disposition home or self-care (01) ==
LOC: EDUNIT# 16:59 → ER 17:01
DX: R06.09 Other forms of dyspnea (principal); I10 Essential (primary) hypertension; I48.91 Unspecified atrial fibrillation; Z20.822 Contact with and (suspected) exposure to COVID-19; Z79.01 Long term (current) use of anticoagulants; Z79.82 Long term (current) use of aspirin
CPT/HCPCS: 36415; 71045; 80053; 83735; 83874; 83880; 84484; 85025; 85610; 85730; 87636; 93005; 93041

== ENCOUNTER → 2021-01-23 | Outpatient (CLI) | payer MEDICARE, OTHER ==
[2021-01-23 14:36] LABS: BASOPHILS % (AUTO) 1 % (0-10); EOSINOPHILS % (AUTO) 1 % (0-10); HEMATOCRIT 38 % (35-52); LYMPHOCYTES # (AUTO) 1.2 10^3/uL (1.0-4.0); LYMPHOCYTES % (AUTO) 29 % (12-44); MEAN CORPUSCULAR HEMOGLOBIN 30 pg (25-34); MEAN CORPUSCULAR HGB CONC 32 g/dL (32-36); MEAN CORPUSCULAR VOLUME 94 fL (80-99); MEAN PLATELET VOLUME 11.1 fL (9.0-12.2); MONOCYTES # (AUTO) 0.6 10^3/uL (0.0-1.0); MONOCYTES % (AUTO) 14 % (0-12); NEUTROPHILS # (AUTO) 2.2 10^3/uL (1.8-7.8); NEUTROPHILS % (AUTO) 55 % (42-75); PLATELET COUNT 184 10^3/uL (130-400); WHITE BLOOD COUNT 4.1 10^3/uL (4.3-11.0)
== END ==
LOC: LAB 13:59
PROVIDERS: ATTEND Internal Medicine Cardiovascular Disease
DX: I95.9 Hypotension, unspecified (principal)
CPT/HCPCS: 36415; 85025

== ENCOUNTER → 2022-12-10 | Outpatient (CLI) | payer MEDICARE, OTHER | LOC: CARDFS 10:14 | PROVIDERS: ATTEND Internal Medicine Cardiovascular Disease | DX: I35.1 Nonrheumatic aortic (valve) insufficiency (principal); I11.9 Hypertensive heart disease without heart failure | CPT/HCPCS: 93306 ==